=== PATIENT | male | born 1955 | race Caucasian/White ===

== ENCOUNTER 2018-08-18 08:46 | Day surgery (SDC) | payer BC ==
[2018-08-18] VITALS (9 sets, daily range): BP systolic 99–134; BP diastolic 57–87; PULSE 59–63; TEMP 97.7
[~2018-08-18] VITALS: Ht 185.5 cm; Wt 104.5 kg
[~2018-08-18 08:46] MED LIST: FE-TABS325 MG PO; FOLIC ACID 40400 MCG PO; FOLIC ACID0.4 MG PO; NICODERM21 MG/24 H TD; TYLENOL 500MG500 MG PO; VITAMIN C BUFF500 MG PO; VITAMIN C PO
[2018-08-18] MEDS ORDERED: NAPROSYN500 MG PO (09:27)
[2018-08-18] MEDS ORDERED: ASPIRIN E.C. 8181 MG PO (09:27)
[2018-08-18] MEDS ORDERED: COREG 3.123.125 MG/T PO (09:28)
[2018-08-18 09:29] LABS: HEMATOCRIT 50.8 % (42.0-52.0); HEMOGLOBIN 17.4 g/dl (13.5-18.0); MEAN CELL VOLUME 88 fl (80.0-100.0); MEAN CORPUSCULAR HEMOGLOBIN 30 pg (27.0-31.0); MEAN CORPUSCULAR HGB CONC 34 g/dl (33.0-37.0); MEAN PLATELET VOLUME 10.2 fl (7.4-10.4); PLATELET COUNT 198 K/mm3 (130-400); RED BLOOD COUNT 5.79 M/mm3 (4.20-5.60); REDCELL DISTRIBUTION WIDTH-CV 12.8 % (11.5-14.5)
[2018-08-18 09:32] LABS: PROTHROMBIN TIME 11.6 SECONDS (9.7-12.8)
[2018-08-18 09:42] LABS: CALCIUM 8.9 mg/dL (8.4-10.2); CREATININE, serum 0.84 mg/dL (0.66-1.25); POTASSIUM 4.9 mmol/L (3.4-5.0)
[2018-08-18] MEDS ORDERED: LIPITOR 40MG TA40 MG PO (12:58)
== END 2018-08-18 16:15 | disposition home or self-care (01) ==
LOC: COL.CAR 08:46
PROVIDERS: Internal Medicine Cardiovascular Disease
DX: I20.9 Angina pectoris, unspecified (principal); R94.39 Abnormal result of other cardiovascular function study; G47.33 Obstructive sleep apnea (adult) (pediatric); Z79.1 Long term (current) use of non-steroidal anti-inflammatories (NSAID); Z79.899 Other long term (current) drug therapy; Z87.891 Personal history of nicotine dependence; M19.90 Unspecified osteoarthritis, unspecified site
CPT/HCPCS: C1769; C1887; J1644; J2250; J3010